=== PATIENT | female | born 2000 | race Two or more races ===

== ENCOUNTER → 2024-12-28 | Outpatient (CLI) | payer MEDICAID, SELFPAY ==
--- NOTE | 2024-12-28 16:30 | XR_ITS ---
Examination: MRI lumbar spine without contrast Date and time of exam: December 28, 2024 1538 hours INDICATIONS: Low back pain difficulty walking 6 years Technique: Multiple MRI axial and sagittal sections lumbar spine. Sagittal T2-weighted images, TR 3500, TE 118 T1 weighted transverse sections, TR 688 T8.5, T2-weighted sagittal sections T1 weighted sagittal sections TR 621, TE 30 T2 axial sections, TR 4, 190, TE 84. Findings: Adequate alignment lumbar vertebral bodies No lumbar fracture Disc desiccation lower 3 lumbar levels Moderate to advanced degenerative disc disease L5-S1 L5-S1 6 mm left paracentral subarticular disc bulge extending to the left foraminal region with mild left L5 ganglionic compression L4-L5 5 mm partially extruded central lumbar disc bulge More cephalad levels unremarkable IMPRESSION: L5-S1 6 mm left paracentral subarticular disc extending into the left foraminal region with mild left L5 ganglionic compression L4-L5 5 mm partially extruded cervical lumbar disk
== END | disposition home or self-care (01) ==
PROVIDERS: PCP Nurse Practitioner Family; Referring Provider Nurse Practitioner Family; Visit Provider Nurse Practitioner Family
DX: M51.26 Other intervertebral disc displacement, lumbar region (principal); M51.370 Other intervertebral disc degeneration, lumbosacral region with discogenic back pain only; G95.20 Unspecified cord compression
CPT/HCPCS: 72148

== ENCOUNTER → 2025-03-11 | Outpatient (CLI) | payer MEDICAID, SELFPAY ==
--- NOTE | 2025-03-11 10:27 | XR_ITS ---
EXAMINATION: Cervical spine, 5 views Technique: Cervical spine AP, AP odontoid, lateral, bilateral obliques, 5 views Exam date and time: March 11, 2025 1108 hours INDICATIONS: Neck pain months. FINDINGS: Satisfactory alignment cervical field bodies. No cervical fracture No cervical disc narrowing Intact odontoid Impression: No cervical fracture or significant cervical arthritic change
== END | disposition home or self-care (01) ==
LOC: CDIM 09:43
PROVIDERS: PCP Nurse Practitioner Family; Referring Provider Specialist; Visit Provider Specialist
DX: M54.2 Cervicalgia (principal)
CPT/HCPCS: 72050